=== PATIENT | male | born 1995 | race Caucasian/White ===

== ENCOUNTER 2020-01-22 21:09 | Emergency (ER) | payer BC ==
[~2020-01-22] VITALS: Ht 177.8 cm; Wt 100.0 kg
[2020-01-22 21:20] VITALS: Ht 177.8 cm; Wt 100.0 kg
[2020-01-22] MEDS ORDERED: IBUPROFEN800 MG PO (21:27)
[2020-01-22 21:45] VITALS: BP 130/76
== END 2020-01-22 21:45 | disposition home or self-care (01) ==
LOC: D.ER 21:09
DX: S76.812A Strain of other specified muscles, fascia and tendons at thigh level, left thigh, initial encounter (principal); X58.XXXA Exposure to other specified factors, initial encounter